=== PATIENT | male | born 1995 | race Asian ===

== ENCOUNTER 2018-12-16 23:39 | Emergency (ER) | payer OTHER ==
[2018-12-16 23:44] VITALS: BP 147/85
--- NOTE | 2018-12-16 23:55 | EDPHY ---
General Time Seen by Provider: 12/16/18 23:54 Narrative: CLINICAL IMPRESSION: Cat scratch ASSESSMENT/PLAN: Patient is a 23-year-old male with no significant medical history who presents to the emergency department after sustaining a cat scratch was abdomen earlier today. Patient is in no acute distress, not toxic-appearing. Physical examination reveals a 3 mm superficial laceration to the mid lower abdomen with mild surrounding erythema. His vital signs were reviewed, no findings to suggest systemic illness. There was no evidence of large gaping wounds, deep structure involvement, abscess or necrotizing skin infection. The area was cleansed and dressed, he was given his 1st dose of antibiotic in the emergency department. He will continue a Zithromax for the next 4 days. Return precautions discussed. CHIEF COMPLAINT: Cat scratch HPI: Patient is a 23-year-old male with no significant medical history who presents to the emergency department after sustaining a cat scratch to his abdomen. Patient reports earlier today he was scratched by 1 of his friends domestic cat. The cat is fully vaccinated. The patient noticed some redness around the scratch and became concerned. He reports mild discomfort at the site. He did clean it, denies any drainage. He denies any other scratches or being bit by the cat. He is up-to-date on his tetanus status. He denies any other concern or complaint. ROS: Otherwise negative, please see HPI. PHYSICAL EXAM: General Appearance: Well-developed, well-appearing and in no acute distress. Respiratory: There are no retractions, lungs are clear to auscultation. Cardiac: Regular rate and rhythm, no murmurs or gallops. Gastrointestinal: Abdomen is soft, nontender, bowel sounds normal, no masses/ hernia, no rigidity, guarding or focal peritoneal findings. Skin: Warm, dry, no rashes. 3 mm superficial scratch in the mid lower abdomen with mild surrounding erythema. Wound is non gaping in nature. Neuro: Alert and oriented x3, Cranial nerves 2-12 grossly intact. No focal deficit. Psych: Normal mood, normal affect. No agitation. MEDICAL DECISION MAKING: Patient was seen independently. Secondary supervising physician at time of evaluation was Dr. Macdade, he did not evaluate this patient. Diagnosis: Cat scratch. Decision to obtain medical records or history from someone other than the patient: No Review / Summarize previous medical records: Yes Discussed patient with another provider: Yes, Dr. Johnson Patient Progress: Stable, discharge. - History Smoking Status: Current some day smoker - Objective Vital Signs: Initial Vital Signs Temperature (C) 36.9 C 12/16/18 23:42 Heart Rate 88 12/16/18 23:42 Respiratory Rate 16 12/16/18 23:42 Blood Pressure 147/85 H 12/16/18 23:42 O2 Sat (%) 95 12/16/18 23:42 O2 Delivery Mode Room Air Allergies/Adverse Reactions: No Known Allergies Allergy (Unverified 12/16/18 23:41) Home Medications: Medication Instructions Recorded Azithromycin 250 mg PO DAILY #4 tablet 12/17/18 Medications Given: Discontinued Medications Azithromycin (Zithromax) 500 mg PO EDNOW ONE PRN Reason: Protocol Stop: 12/17/18 00:28 Last Admin: 12/17/18 00:35 Dose: 500 mg Departure - Departure Disposition: Home, Routine, Self-Care Clinical Impression: Cat scratch Condition: Good Instructions: Abrasion (ED) Additional Instructions: DISCHARGE INSTRUCTIONS FROM YOUR PROVIDER Thank you for visiting our emergency department today. Rest, push fluids, healthy diet, all to help support your immune system fight off infection. Clean your wounds clean and dressed. Clean at least four times daily or when soiled with gentle soap and water, apply a dressing and wear the splint for relative immobilization and protection. Your given your 1st dose of antibiotic in the emergency department, continue for the next 4 days as directed. Return for increased or unmanageable pain, decreased range of motion of your fingers or hand, coolness or discoloration of the fingers or hand, development of redness, swelling, warmth, drainage, heavy bleeding, red streaking, fever, chills, nausea, vomiting, dizziness, weakness, bloody diarrhea, rash, difficulty breathing or swallowing, or for any other new, worsening, or worrisome symptoms. People present with illnesses and injuries in different ways, and it is always possible that we have missed something. Again, thank you for choosing our emergency department. We hope that you feel better. Referrals: [facility] [Clinic] - 2-3 days, call for appt. Marilia Donnelly MD [Medical Doctor] - 2-3 days, call for appt. (This is a referral for a PCP should you need one) Prescriptions: Azithromycin 250 mg PO DAILY #4 tablet
[2018-12-17] MEDS ORDERED: AZITHROMYCIN 250 MG TAB PO ONE (00:27)
== END 2018-12-17 00:37 | disposition home or self-care (01) ==
DX: S30.811A Abrasion of abdominal wall, initial encounter (principal); W55.03XA Scratched by cat, initial encounter